=== PATIENT | female | born 1950 | race Two or more races ===

== ENCOUNTER 2021-09-28 07:50 | Day surgery (SDC) | payer OTHER ==
[~2021-09-28 07:50] MED LIST: LEVO-T25 MCG PO; LIPITOR20 MG PO; NORVASC2.5 M1 PO; ZESTORETIC 20/11 TAB PO
[2021-09-28] MEDS ORDERED: IBU600 MG PO (11:28)
== END 2021-09-28 16:10 | disposition home or self-care (01) ==
LOC: CIR.AMB 07:50
PROVIDERS: ATTEND Obstetrics & Gynecology Gynecology
DX: N81.12 Cystocele, lateral (principal); I10 Essential (primary) hypertension; E03.9 Hypothyroidism, unspecified; Z20.822 Contact with and (suspected) exposure to COVID-19